=== PATIENT | male | born 1990 | race African-American/Black ===

== ENCOUNTER 2020-10-08 00:23 | Emergency (ER) | payer OTHER ==
[~2020-10-08] VITALS: Ht 172.7 cm; Wt 104.2 kg
[2020-10-08 00:24] VITALS: BP 158/90
[2020-10-08] MEDS ORDERED: IBUP1TAB5 PO (00:53)
[2020-10-08] MEDS ORDERED: NORCO, ANEXSIA 5/325MG TABLET (HYDROcodone/ACETAMINOPHEN) PO ONE (01:30)
--- NOTE | 2020-10-08 02:06 | REPVR ---
PROCEDURE INFORMATION: Exam: XR Right Hand Exam date and time: 10/08/2020 1:01 AM Age: 30 years old Clinical indication: Pain; Hand; Right; Additional info: Hit a door TECHNIQUE: Imaging protocol: XR Right hand. Views: 3 or more views. COMPARISON: No relevant prior studies available. FINDINGS: Bones/joints: There are acute minimally displaced fractures involving the head and neck of the right 5th metacarpal with volar angulation of the distal component of the fracture. No other fractures are noted in the right hand. The alignment of the joints is maintained. No arthropathy is noted in the right hand. Soft tissues: There is soft tissue swelling around the fracture of the right 5th metacarpal. IMPRESSION: Acute minimally displaced fractures involving the head and neck of the right 5th metacarpal with volar angulation of the distal component of the fracture. Electronically signed by: Aftab Arzate On 10/08/2020 02:06:48 AM
== END 2020-10-08 01:51 | disposition home or self-care (01) ==
LOC: M ED 00:23
DX: S62.316A Displaced fracture of base of fifth metacarpal bone, right hand, initial encounter for closed fracture (principal); W22.8XXA Striking against or struck by other objects, initial encounter; Y92.009 Unspecified place in unspecified non-institutional (private) residence as the place of occurrence of the external cause; Y93.9 Activity, unspecified; Y99.9 Unspecified external cause status